=== PATIENT | female | born 1990 | race Two or more races ===

== ENCOUNTER 2018-11-15 13:14 | Emergency (ER) | payer SELFPAY ==
[~2018-11-15] VITALS: Ht 167.6 cm; Wt 54.4 kg
[2018-11-15 13:32] VITALS: BP 120/73
== END 2018-11-15 14:27 | disposition home or self-care (01) ==
LOC: ER 13:20
DX: J03.90 Acute tonsillitis, unspecified (principal); Z88.1 Allergy status to other antibiotic agents